=== PATIENT | female | born 1960 | race Caucasian/White ===

== ENCOUNTER 2016-03-12 20:02 | Emergency (ER) | payer MEDICARE, OTHER ==
[~2016-03-12] VITALS: Ht 160 cm; Wt 145.0 kg
[~2016-03-12 20:02] MED LIST: ASEN5TAB6 SL; ASPI-1061 PO; ATOR10TA69 PO; DULO20CA30 PO; FOLI1 PO; INSLAN SQ; LEVO50TA11 PO; MULT-1238 PO; OMEP10CA2 PO; SPIR25TA PO; THIA100T13 PO; TIOT185 IH
[2016-03-12 20:52] VITALS: BP 125/76
[2016-03-12 21:06] LABS: GLUCOSE,POINT OF CARE 193 MG/DL (70-110)
[2016-03-12] MEDS ORDERED: FIORC PO (21:12)
[2016-03-12] MEDS ORDERED: LEVO750T21 PO (21:12)
[2016-03-12] MEDS ORDERED: HYDR2 PO (21:12)
[2016-03-12] MEDS ORDERED: MELA3 PO (21:12)
[2016-03-12] MEDS ORDERED: INSNOV SQ (21:12)
[2016-03-12] MEDS ORDERED: PANT40TA25 PO (21:12)
[2016-03-12] MEDS ORDERED: TRIH5TAB2 PO (21:12)
[2016-03-12] MEDS ORDERED: ADV250 IH (21:12)
[2016-03-12] MEDS ORDERED: FERR-89 PO (21:12)
[2016-03-12] MEDS ORDERED: POLY15DR58 OP (21:12)
[2016-03-12] MEDS ORDERED: ATOR10TA84 PO (21:12)
[2016-03-12] MEDS ORDERED: GABA-533 PO (21:12)
[2016-03-12] MEDS ORDERED: SENN-30 PO (21:12)
[2016-03-12] MEDS ORDERED: MEMA10TA11 PO (21:12)
[2016-03-12] MEDS ORDERED: RISP3 PO (21:12)
[2016-03-12] MEDS ORDERED: FURO20 PO (21:12)
[2016-03-12] MEDS ORDERED: SERT100T12 PO (21:12)
[2016-03-12] MEDS ORDERED: PERCT10 PO (21:12)
[2016-03-12] MEDS ORDERED: PRED5 PO (21:12)
[2016-03-12] MEDS ORDERED: CLOP75 PO (21:12)
[2016-03-12] MEDS ORDERED: CYCL10 PO (21:12)
[2016-03-12] MEDS ORDERED: DiphenhydrAMINE HCL 50 MG/ML VIAL IM ONE (23:00)
[2016-03-12] MEDS ORDERED: LORazepam 2 MG/ML VIAL IM ONE (23:00)
[2016-03-12] MEDS ORDERED: HALOPERIDOL LACTATE 5 MG/ML VIAL IM ONE (23:00)
== END 2016-03-13 00:32 | disposition home or self-care (01) ==
LOC: EMS 20:06
DX: R45.851 Suicidal ideations (principal); F25.9 Schizoaffective disorder, unspecified; F41.9 Anxiety disorder, unspecified; F31.9 Bipolar disorder, unspecified; E11.9 Type 2 diabetes mellitus without complications; I11.0 Hypertensive heart disease with heart failure; I50.9 Heart failure, unspecified; J44.9 Chronic obstructive pulmonary disease, unspecified; E66.01 Morbid (severe) obesity due to excess calories; Z79.4 Long term (current) use of insulin; Z79.84 Long term (current) use of oral hypoglycemic drugs; Z88.5 Allergy status to narcotic agent; Z88.0 Allergy status to penicillin; Z88.2 Allergy status to sulfonamides; Z88.8 Allergy status to other drugs, medicaments and biological substances; Z68.43 Body mass index [BMI] 50.0-59.9, adult
CPT/HCPCS: 82962; 96372; 99284; J1200; J1630; J2060